=== PATIENT | female | born 1930 | race Caucasian/White ===

== ENCOUNTER 2019-06-05 10:21 | Emergency (ER) | payer MEDICARE ==
[2019-06-05] MEDS ORDERED: METHYLPREDNISOLONE SOD SUCC 40MG/ML 1ML ONE (11:34)
[2019-06-05] MEDS ORDERED: DiphenhydrAMINE HCL 50 MG/ML VIAL ONE (11:35)
[2019-06-05] MEDS ORDERED: FAMOTIDINE 20MG TAB 20 MG TAB ONE (11:35)
== END 2019-06-05 12:26 | disposition home or self-care (01) ==
LOC: EDH 10:21
DX: L25.9 Unspecified contact dermatitis, unspecified cause (principal); L03.311 Cellulitis of abdominal wall; K21.9 Gastro-esophageal reflux disease without esophagitis
CPT/HCPCS: 96372 ×2; 99284; J1200; J2920